=== PATIENT | male | born 1960 | race American Indian/Alaskan Native ===

== ENCOUNTER 2017-10-07 11:59 | Emergency (ER) | payer OTHER ==
[2017-10-07 13:31] VITALS: BP 129/86
--- NOTE | 2017-10-07 15:57 | XRay Report ---
LEFT FOOT RADIOGRAPHS INDICATION: Pain. COMPARISON: None similar. FINDINGS: AP, lateral and oblique left foot radiographs demonstrate intact bones, joints and soft tissues. Possible osteopenia. CONCLUSION: No acute left foot radiographic abnormality. Thank you for the opportunity to participate in this patient's care.
== END 2017-10-07 22:44 | disposition left against medical advice (07) ==
LOC: ED 11:59
DX: R20.0 Anesthesia of skin (principal); Z53.21 Procedure and treatment not carried out due to patient leaving prior to being seen by health care provider